=== PATIENT | male | born 2000 | race Caucasian/White ===

== ENCOUNTER 2023-01-31 09:28 | Emergency (ER) | payer OTHER ==
[~2023-01-31] VITALS: Ht 180.3 cm; Wt 63.6 kg
[2023-01-31 09:30] VITALS: BP 162/82; TEMP 97.8; O2SAT 99
== END 2023-01-31 11:57 | disposition left against medical advice (07) ==
LOC: M ED 09:28
DX: Z04.1 Encounter for examination and observation following transport accident (principal); F17.210 Nicotine dependence, cigarettes, uncomplicated